=== PATIENT | female | born 1975 | race Caucasian/White ===

== ENCOUNTER 2016-09-18 11:07 | Emergency (ER) | payer OTHER ==
[2016-09-18 11:15] VITALS: BP 131/80; PULSE 87; TEMP 98.9; BMI 28.1
--- NOTE | 2016-09-18 12:22 | PDOC ---
History of Present Illness - General Chief Complaint: Eye Problem Stated Complaint: EYE PROBLEM Time Seen by Provider: 09/18/16 11:38 History Source: Patient Exam Limitations: No Limitations - History of Present Illness Initial Comments: 09/18/16 12:07 41 y/o female presents to the emergency department for evaluation of right eye redness along with mild soreness to the lower lid since awakening this morning. Patient states unsure if she itched it while sleeping but denies any injury, headache, bleeding disorders, or history of hypertension. Denies visual changes , dizziness, or pain to the back of her eye. Timing/Duration: 4-6 hours Severity: mild Associated Symptoms: reports: denies symptoms Past History - Travel Traveled outside of the country in the last 30 days: Yes - Past Medical History Allergies/Adverse Reactions: Allergies Allergy/AdvReac Type Severity Reaction Status Date / Time No Known Drug Allergies Allergy Verified 09/18/16 11:15 Home Medications: Ambulatory Orders NK [No Known Home Medication] 09/18/16 Anemia: No Asthma: No Cancer: No Cardiac Disorders: No CVA: No COPD: No CHF: No Dementia: No Diabetes: Yes (gestational on glyburide 2.5mg bid) GI Disorders: No Disorders: No HTN: No Hypercholesterolemia: No Liver Disease: No Seizures: No Thyroid Disease: No - Surgical History Orthopedic Surgery: Yes (RIGHT HAND) - Reproductive History LMP Normal: Yes Is Patient Now?: No (#): 3 Para: 2 - Psycho/Social/Smoking Cessation Hx Suicidal Ideation: No Smoking Status: No Smoking History: Never smoked Have you smoked in the past 12 months: No Number of Cigarettes Smoked Daily: 0 Information on smoking cessation initiated: No Hx Alcohol Use: No Drug/Substance Use Hx: No Substance Use Type: None Hx Substance Use Treatment: No Patient Lives Alone: No Lives with/in: spouse/SO Review of Systems - Review of Systems Able to Perform ROS?: Yes Constitutional: No: Symptoms Reported HEENTM: Yes: Eye Pain (redness to rt eye) Respiratory: No: Symptoms reported Cardiac (ROS): No: Symptoms Reported ABD/GI: No: Symptoms Reported : No: Symptoms Reported Musculoskeletal: No: Symptoms Reported Integumentary: No: Symptoms Reported Neurological: No: Symptoms reported *Physical Exam - Vital Signs Last Vital Signs Temp Pulse Resp BP Pulse Ox 98.9 F 87 16 131/80 100 09/18/16 11:08 09/18/16 11:08 09/18/16 11:08 09/18/16 11:08 09/18/16 11:08 - Physical Exam General Appearance: Yes: Nourished, Appropriately Dressed. No: Apparent Distress HEENT: positive: EOMI, AVNDANA, Pale Conjunctivae, Other (noted subconjunctival hemmorhage measured 1cm x 0.5 cm ) Integumentary: positive: Normal Color, Warm, Moist Neurologic: positive: Motor Strength 5/5 (ambulatory) Medical Decision Making - Medical Decision Making 09/18/16 12:30 Patient with noted eye redness and soreness to the lower lid. Patient on exam had a subconjunctival hemorrhage without signs of corneal abrasion after receiving flour scein staining. Patient with likely hemorrhage from rubbing. Patient will be ordered eye ointment and discharged home. Supportive care instructions recieved *DC/Admit/Observation/Transfer Diagnosis at time of Disposition: Subconjunctival hemorrhage of right eye - Discharge Dispostion Disposition: HOME Condition at time of disposition: Good - Referrals Referrals: Dunia Hernandez MD [Primary Care Provider] - - Patient Instructions Printed Discharge Instructions: DI for Subconjunctival Hemorrhage Additional Instructions: Please use ointment as prescribed. Please wear sunglasses when outside. Allow area to heal naturally which may take approximately 2 weeks. - Post Discharge Activity
== END 2016-09-18 12:39 | disposition home or self-care (01) ==
LOC: JERFT 11:07
DX: H11.31 Conjunctival hemorrhage, right eye (principal); E13.9 Other specified diabetes mellitus without complications; Z79.84 Long term (current) use of oral hypoglycemic drugs
CPT/HCPCS: 99281-25

== ENCOUNTER 2021-09-23 00:35 | Emergency (ER) | payer OTHER ==
[2021-09-23] MEDS ORDERED: IBUPROFEN 600 MG TABLET (FP) PO ONE (01:03)
[2021-09-23 01:23] VITALS: BP 141/87; PULSE 74; RESP 20; TEMP 98; BMI 28.3
[2021-09-23] MEDS ORDERED: IBUPROFEN 400 MG TABLET (FP) PO ONE (02:31)
[2021-09-23] MEDS ORDERED: LIDOCAINE 5% TOPICAL PATCH TP ONE (04:31)
[2021-09-23] MEDS ORDERED: METHOCARBAMOL 500 MG TABLET PO ONE (04:31)
[2021-09-23] MEDS ORDERED: METHOCARBAMOL 500 MG TABLET ONE (05:13)
[2021-09-23] MEDS ORDERED: LIDOCAINE 5% TOPICAL PATCH ONE (05:14)
[2021-09-23] MEDS ORDERED: LIDOCAINE PATCH REMOVAL MC SCH (22:00)
== END 2021-09-23 05:30 | disposition home or self-care (01) ==
LOC: JER 00:35
DX: M25.512 Pain in left shoulder (principal)
CPT/HCPCS: 71045-TC-FY; 73030-TC-LT-FY; 73060-TC-LT-FY; 93005; 93010; 99285-25

== ENCOUNTER → 2024-05-21 | Day surgery (SDC) | payer OTHER | END | disposition home or self-care (01) | LOC: FMAMMOTONE 12:45 | PROVIDERS: ATTEND Nurse Practitioner Family | PROC: 0HBU3ZX Excision of Left Breast, Percutaneous Approach, Diagnostic (ICD-10-PCS; principal; 2024-05-21) | DX: N60.12 Diffuse cystic mastopathy of left breast (principal); N64.89 Other specified disorders of breast; R92.0 Mammographic microcalcification found on diagnostic imaging of breast | CPT/HCPCS: 19081; 76098-TC-FY; 87899; 88305-TC; A4648 ==